=== PATIENT | male | born 1995 | race Caucasian/White ===

== ENCOUNTER 2016-11-10 03:00 | Inpatient (IN) | payer OTHER ==
[~2016-11-10] VITALS: Ht 167.6 cm; Wt 63.5 kg
--- NOTE | ~2016-11-10 | DS ---
Unit #: [id number] #: [id number] Patient: [facility] [id number] [facility] [address] [place] [address] [id number] I MR#: [id number] NAME: PARKER MARTINES. ROOM: P202 Age: 20 Sex: M Admission Date: 11/10/2016 : 1995 Discharge Date: 11/13/2016 Attending Physician: Cheyenne Mendez M.D. DISCHARGE SUMMARY IDENTIFYING DATA Mr. Martines is a 20-year-old, single, white male who was transferred to us from [facility] and was accompanied by his mother. DISCHARGE DIAGNOSES Psychiatric: Major depressive disorder, recurrent, moderate, with psychosis; cannabis dependence, moderate; opioid dependence, moderate. Medical: None. Stressors: Moderate psychosocial stressors. HISTORY OF PRESENT ILLNESS Please see initial psychiatric evaluation for details. PAST PSYCHIATRIC HISTORY Please see initial psychiatric evaluation for details. PAST MEDICAL HISTORY Please see initial psychiatric evaluation for details. HOSPITAL COURSE The patient was admitted to the adult chemical dependency unit at [facility] and was oriented to the hospital environment. Routine p.r.n. medications were initiated, and he was started back on his home medications and medications were adjusted and he was closely monitored. He was taking the medications regularly and was tolerating them fairly well and was able to show a decent and therapeutic response and as such, was very noncompliant with treatment recommendation and was wanting to go home and was yelling, screaming, cursing, and stating that he does not need to be here and was refusing to participate in any treatment related activities and did not appear to be benefitting from treatment at all and as such, it was decided that he will be discharged home and will continue treatment on an outpatient basis. DISCHARGE MEDICATIONS None. DISCHARGE CONDITION Stable. PROGNOSIS Fair. Dictated by... Unit #: [id number] #: [id number] Patient: PARKER MARTINES Denis Morris/lorril TD: 11/13/2016 20:07 JOB #: [id number] DISCHARGE SUMMARY Page 1 of 1 X Cheyenne Mendez MD DISCHARGE SUMMARY
--- NOTE | ~2016-11-10 | PA ---
Unit #: [id number] #: [id number] Patient: PARKER MARTINES [id number] [facility] [address] [place] [address] [id number] MR#: [id number] NAME: PARKER MARTINES. ROOM: P202 Age: 20 Sex: M Admission Date: 11/10/2016 : 1995 Date of Assessment: 11/10/2016 Attending Physician: Cheyenne Mendez M.D. Admitting Physician: Cheyenne Mendez M.D. PSYCHIATRIC ASSESSMENT DATE OF SERVICE 11/10/2016. IDENTIFYING DATA Mr. Martines is a 20-year-old single white male, who is a resident of [place], [place], and was transferred to from [facility] and was accompanied by his mother. CHIEF COMPLAINT "I've been experiencing suicidal thoughts that come and go." HISTORY OF PRESENT ILLNESS Mr. West is a 20-year-old white male, who was taken to the emergency room by his mother with increasing depression and suicidal ideations, and reports that his suicidal ideations are stemming from his recent use of acid that he used an unknown amount of acid 2 weeks ago and was seen to be rather disorganized and distant and was unable to maintain good eye contact and was exhibiting some significant depressive symptoms and his drug screen was also seen to be positive for marijuana in the emergency room. The patient reports that he has been using acid the day before yesterday with his girlfriend. Mother shared that the patient has history of using acid, and he has never been the same ever since and he has been using since the age of 17 and has been really paranoid for the last few days and have been giving her and her others some strange stares as if he was upset with them, but denies anything is wrong and has been acting "crazy with his girlfriend and arguing with her as if she is cheating on him." Mother reports that the patient presented today as if he is having a panic attack and started saying that he has been having horrible thoughts and started crying and was seen to be a significant threat to himself and therefore, recommendation for inpatient level of care for safety and stabilization was made and the patient was stepped up to inpatient unit. SUBSTANCE ABUSE HISTORY The patient reports history of alcohol, cannabis, cocaine, acid, and opioid abuse, though it appears that more recently he has been mixing drugs including cannabis and acid. PAST PSYCHIATRIC HISTORY The patient has not had any prior inpatient or outpatient psychiatric treatment. Review of the medical records indicate currently he is not active in treatment program, is not seeing a psychiatrist, and is not taking any psychotropic medications. Unit #: [id number] #: [id number] Patient: PARKER MARTINES PAST MEDICAL HISTORY No acute or chronic medical illnesses. ALLERGIES No known medication allergies. CURRENT MEDICATIONS None. PERSONAL AND SOCIAL HISTORY A 20-year-old white male, who reports that he is single, unemployed, and lives at home with his mother and his brother and has fairly decent social support system. MENTAL STATUS EXAMINATION Young white male who was casually dressed with fair personal hygiene, appears to be in no acute distress or discomfort. He was awake and alert on interaction with intact orientation to time, place, and person. His mood was anxious and depressed with a congruent affect. His speech was slow and restricted in content. His thought processes were disorganized with some looseness of associations and paranoid ideations and delusional behavior. His insight and judgment remain significantly impaired. DIAGNOSTIC IMPRESSION Psychiatric: Major depressive disorder, recurrent, moderate, with psychosis; cannabis dependence, moderate; acid dependence, moderate. Medical: None. Stressors: Moderate psychosocial stressors. TREATMENT PLAN 1. The patient has presented with history of substance abuse and mood disorder, and has been decompensating and will need inpatient hospitalization for safety and stabilization. We will start him back on his home medications. We will adjust the medications and monitor response. 2. Supportive therapy was provided to the patient. 3. Safe, structured, and nourishing environment will be provided. ESTIMATED LENGTH OF STAY 4 to 5 days. ABILITY TO HELP SELF Limited. WILLINGNESS TO HELP SELF The patient appears to be willing to help self. STRENGTHS 1. Communicative. 2. Cooperative. PROBLEMS 1. Chronic dysphoric symptoms. 2. Chronic chemical dependency. 3. Poor social support system. DISCHARGE CRITERIA This will be contingent upon the patient's ability to show resolution of his depression and anxiety and psychosis as well as his ability to stay Unit #: [id number] #: [id number] Patient: PARKER MARTINES safe to himself, particularly after discharge from the hospital. Dictated by... Denis Morris/yarely TD: 11/11/2016 07:36 JOB #: [id number] PSYCHIATRIC ASSESSMENT Page 1 of 1 X Cheyenne Mendez MD PSYCHIATRIC ASSESSMENT
--- NOTE | ~2016-11-10 | PN ---
Unit #: [id number] #: [id number] Patient: PARKER MARTINES [id number] [facility] [address] [place] [address] [id number] I MR#: [id number] NAME: PARKER MARTINES. ROOM: P202 Age: 20 Sex: M Admission Date: 11/10/2016 : 1995 Attending Physician: Cheyenne Mendez M.D. Admitting Physician: Denis Morris PROGRESS NOTES DATE OF SERVICE 11/11/2016 DISCUSSION Mr. Martines is a 20-year-old white male with mood disorder who was seen today. Chart was reviewed and case was discussed with the staff. He remains anxious, withdrawn, depressed, and (1) __. Meanwhile he has been cooperative with the treatment recommendations and has been taking the medications and tolerating them fairly well with no reported side effects. MENTAL STATUS EXAMINATION Young white male who is casually dressed with fair personal hygiene, appears to be in no acute distress or discomfort. The patient was awake and alert with intact orientation. His mood is anxious and depressed with congruent affect. His speech is slow and restricted in content. He reports having suicidal ideation but denies any homicidal ideations. His insight and judgment remain slightly impaired. TREATMENT PLAN 1. We will continue him on his current medications and treatment protocol. We will monitor his response to the medications and make further adjustments as needed. 2. We will continue to follow up. Dictated by... Cheyenne Mendez M.D. IAA/bzg TD: 11/11/2016 12:37 JOB #: [id number] Unit #: [id number] #: [id number] Patient: PARKER MARTINES PROGRESS NOTES Page 1 of 1 X Cheyenne Mendez MD PROGRESS NOTE
--- NOTE | ~2016-11-10 | HP ---
Unit #: [id number] #: [id number] Patient: PARKER MATUTE [id number] [facility] [address] [place] [address] [id number] MR#: [id number] NAME: PARKER MATUTE. ROOM: P202 Age: 20 Sex: M Admission Date: 11/10/2016 : 1995 Attending Physician: Cheyenne Mendez M.D. Admitting Physician: Cheyenne Mendez M.D. HISTORY AND PHYSICAL HISTORY OF PRESENT ILLNESS The patient is a 20-year-old man who has been admitted to [facility] for suicidal ideation and drug detox. PAST MEDICAL HISTORY Denies. PAST SURGICAL HISTORY Patient endorses that he has had a knee scope. ALLERGIES No known allergies. SOCIAL HISTORY Patient endorses marijuana and acid use. He also endorses tobacco and alcohol use. He has used cocaine in the past. FAMILY HISTORY Medically noncontributory. REVIEW OF SYSTEMS CONSTITUTIONAL: Denies fever or chills. HEENT: Denies sore throat, ear pain or runny nose. CARDIOVASCULAR: Denies chest pain, irregular heart rhythm or palpitations. CHEST: Denies shortness of breath or cough. No hemoptysis. GASTROINTESTINAL: Denies nausea, vomiting, diarrhea or chronic constipation. ENDOCRINE: Denies increased thirst or urination. Denies any recent significant weight loss or gain. GENITOURINARY: Denies dysuria, frequency, or hematuria. SKIN: Denies rashes. HEMATOLOGIC: Denies any increased bleeding or bruising. MUSCULOSKELETAL: Denies hot, swollen joints. No generalized muscle pain. NEUROLOGIC: Denies problems with speech, vision, numbness, tingling. Denies loss of bowel or bladder control. HOME MEDICATIONS None. PHYSICAL EXAMINATION GENERAL: Patient is awake, alert, in no acute distress. VITAL SIGNS: Temperature 97.8, heart rate 86, respirations 16, blood pressure 112/68. Unit #: [id number] #: [id number] Patient: PARKER MATUTE HEIGHT: 5 feet 6. WEIGHT: 140 pounds. HEENT: Head is atraumatic, normocephalic. Pupils equal, round and reactive. Extraocular movements are intact. No drainage from ears or nares. NECK: Supple. Trachea is midline. HEART: Regular rate and rhythm. LUNGS: Clear. ABDOMEN: Soft, nontender, nondistended. Bowel sounds are positive. SKIN: Warm, dry with no unusual rashes or lesions. : Not done. EXTREMITIES: No clubbing, edema or cyanosis. NEUROLOGICAL: Within normal limits. Cranial nerves II through XII intact. No focal deficits. Sensory and motor functioning grossly normal. Moves all extremities well. Coordination, gait normal. Deep tendon reflexes intact. IMPRESSION Psychiatric admission. RECOMMENDATIONS PSYCHIATRIC: Will be per psychiatry. MEDICAL: I see no contraindication to participate in facility's activities. MEDICAL PROGNOSIS Good. MEDICAL CONDITION Stable. Dictated by... Yael Carreno A.P.R.N. for Latha Ardon M.D. AM/sunil TD: 11/10/2016 17:52 JOB #: [id number] HISTORY AND PHYSICAL Page 1 of 1 X Yael Carreno APRN X HISTORY AND PHYSICAL
[2016-11-11 09:50] LABS: BASOPHIL% 0.9 % (0-2.5); EOSINOPHIL# 0.1 X10e3 (0-0.7); EOSINOPHIL% 2.1 % (0.0-7.0); HEMOGLOBIN 14.6 gm/dL (13.0-16.0); LYMPHOCYTE# 1.5 X10e3 (1.0-3.5); MEAN CELL VOLUME 91.8 FL (83-96); MEAN CORPUSCULAR HEMOGLOBIN 31.2 PG (28-34); MEAN PLATELET VOLUME 8.9 FL (6.5-11.5); MONOCYTE# 0.3 X10e3 (0-1.0); MONOCYTE% 5.6 % (3.0-12.0); NEUTROPHIL# 3.5 X10e3 (1.5-7.1); NEUTROPHIL% 63.4 % (40-75); PLATELET COUNT 202 X10e3 (140-420); RED BLOOD COUNT 4.69 X10e (3.90-5.60); RED CELL DISTRIBUTION WIDTH 13.3 % (11.0-15.5); WHITE BLOOD COUNT 5.4 X10e3 (4.0-10.5)
[2016-11-11 09:53] LABS: DIFF IND NO
[2016-11-11 09:58] LABS: CALCIUM SERUM 9.3 mg/dL (8.4-10.2); GLOM FILT RATE Estimated 107.1 mL/min (>60); POTASSIUM 4.4 mmol/L (3.5-5.1); PROTEIN TOTAL SERUM 6.3 g/dL (6.0-8.3)
[2016-11-12 09:54] LABS: URINE APPEARANCE CLEAR; URINE BILIRUBIN NEG (NEG); URINE BLOOD NEG (NEG); URINE COLOR YELLOW; URINE GLUCOSE NEG (NEG); URINE KETONE NEG (NEG); URINE LEUKOCYTE ESTERASE 1+ (NEG); URINE NITRATE NEG (NEG); URINE PH 6.5 (5-8); URINE PROTEIN NEG (NEG); URINE SPECIFIC GRAVITY 1.015 (1.003-1.035); URINE UROBILINOGEN 0.2 MG/DL (NEG)
[2016-11-12 09:57] LABS: URBCS1 AUWI 0-2 /[HPF] (0-2); URINE BACTERIA AUWI NEG (NEGATIVE); URINE SQUAMOUS EPITHELIAL CELL OCC /[HPF]
[2016-11-12 10:19] LABS: AMPHETAMINE NEG (NEG); BARBITURATES NEG (NEG); BENZODIAZEPINES POS (NEG); COCAINE NEG (NEG); MARIJUANA POS (NEG); OPIATES NEG (NEG); TRICYCLIC ANTIDEPRESSANTS NEG (NEG); U METHADONE NEG (NEG)
== END 2016-11-13 11:08 | disposition home or self-care (01) | DRG 885 ==
LOC: P2S 07:21
PROVIDERS: Psychiatry & Neurology Psychiatry
PROC: HZ2ZZZZ Detoxification Services for Substance Abuse Treatment (ICD-10-PCS; principal; 2016-11-10)
DX: F33.3 Major depressive disorder, recurrent, severe with psychotic symptoms (principal); R45.851 Suicidal ideations; F19.20 Other psychoactive substance dependence, uncomplicated; F12.20 Cannabis dependence, uncomplicated; F17.200 Nicotine dependence, unspecified, uncomplicated
CPT/HCPCS: 80053; 80307; 81003; 85025